=== PATIENT | female | born 1945 | race Caucasian/White ===

== ENCOUNTER 2016-10-03 06:52 | Day surgery (SDC) | payer MEDICARE, OTHER ==
[2016-09-26 13:25] LABS: HEMOGLOBIN 15.2 g/dL (12.0-16.0)
[2016-09-26 13:26] LABS: HEMATOCRIT 44.5 % (36.0-48.0)
[2016-09-26 13:27] LABS: BUN (BLOOD UREA NITROGEN) 20 MG/DL (6-23); CALCIUM, SERUM 8.9 MG/DL (8.5-10.4); CHLORIDE, SERUM 104 MMOL/L (96-112); CO2 (CARBON DIOXIDE) 30 MMOL/L (24-34); CREATININE 2.01 MG/DL (0.55-1.02); GFR AFRICAN AMERICAN 28 ML/MIN (>=60); GFR NON AFRICAN AMERICAN 25 ML/MIN (>=60); GLUCOSE, SERUM 99 MG/DL (60-99); POTASSIUM, SERUM 4.1 MMOL/L (3.5-5.3); SODIUM, SERUM 142 MMOL/L (135-148)
--- NOTE | ~2016-10-03 | OP ---
Record Of Operation [facility] [address] [place]. [address] NAME: SUNNY WILLIAMSON : 47 STATUS : [facility]#: [id number] AGE: 71 ADM/REG DATE : 10/03/16 MR#: [id number] REPORT SERV DATE: 10/03/16 DICTATED BY: TEE HAGAN DATE: 10/03/16 REPORT STATUS : Draft TRANSCRIBED BY: MODGasper DATE: 10/03/16 DATE OF PROCEDURE: 10/03/2016 PREOPERATIVE DIAGNOSIS: Renal artery stenosis secondary to atherosclerosis with difficult-to control hypertension and chronic kidney disease. POSTOPERATIVE DIAGNOSIS: Renal artery stenosis secondary to atherosclerosis with difficult- to-control hypertension and chronic kidney disease. PROCEDURES: 1. Ultrasound-guided percutaneous access, right common femoral artery. 2. Abdominal aortogram with CO2. 3. Renal arteriogram with CO2. 4. Primary stent placed in the left renal artery (6 mm x 17 mm Express stent x2). SURGEON: Tee Hagan M.D. BEAD PICKER: Patrick. ANESTHESIA: Local with MAC. ESTIMATED BLOOD LOSS: 10 mL. CONTRAST: 8 mL. IV FLUIDS: 600 mL. COMPLICATIONS: None. INDICATION: Ms Williamson is a pleasant 71-year-old female, with difficult to control hypertension and chronic kidney disease. She was found on recent ultrasound to have high- grade left renal artery stenosis. She is recommended for arteriogram with CO2 and intervention if needed. DETAILS OF PROCEDURE: After informed consent was obtained, the patient was brought to the endovascular suite and placed in supine position. After administration of IV sedation, she was prepped and draped in the usual sterile fashion. A time-out was performed. I commenced the procedure with ultrasound-guided percutaneous access of the right common femoral artery. This was done after anesthetizing the right groin with local anesthetic. A permanent image of the artery documenting patency was saved and stored in the patient's chart. An entry needle passed with a Bentson wire confirmed within the aorta under fluoroscopy. I then placed a 5-Setswana sheath. I then advanced the [place] flush catheter in the abdominal aorta. The abdominal aortogram was performed with CO2. This shows a patent nonaneurysmal infrarenal aorta. Right renal artery is visualized with no stenosis. Left renal artery is visualized. There is what appears to be a near occlusive stenosis at the origin of left renal artery. Contrast nephrogram is seen distal to the stenosis, but it is somewhat faint. Record Of Operation [facility] [id number] [place]. [address] NAME: SUNNY WILLIAMSON : 47 STATUS : [facility] PAT#: [id number] AGE: 71 ADM/REG DATE : 10/03/16 MR#: [id number] REPORT SERV DATE: 10/03/16 DICTATED BY: TEE HAGAN. DATE: 10/03/16 REPORT STATUS : Draft TRANSCRIBED BY: CARLOS DATE: 10/03/16 After that, we systemically heparinized. I replaced the Glidewire and exchanged the 5- Setswana sheath for a 6 x 45 sheath. We then used the [facility] to select the left renal artery. Selective left renal artery arteriogram was performed which confirms high-grade nearly occlusive stenosis of the left renal artery. After that, we placed a 6 mm x 17 mm Express stent in the left renal artery origin. However, due to the high-grade nature of the stenosis, it actually jumped forward to where the stenosis was not fully treated. I performed angioplasty in this area, but the result was not satisfactory. As a result, a second stent was placed overlapping the first. This was the other 6 mm x 17 mm Express stent. This was deployed in perfect position. There was no residual stenosis on repeat arteriogram. There was good flow distally into the kidney. Satisfied with that, wires and catheters were removed. ProGlide closure device was deployed in the right femoral access site without difficulty. The patient tolerated the procedure well with no complications. I was present and participated in the entire case as dictated. REBECCA/CARLOS Tee Hagan M.D. / [id number] CC: Char Long III, D.O. Nathan Chamberlain, M.D.
[~2016-10-03 06:52] MED LIST: APRES50 PO; BUSPAR15 M1 PO; CATAPRES3 TOP; COREG25 PO; COZ50 PO; L20 PO; VENTOLIN HFA INH
[2016-10-03] MEDS ORDERED: CAT2 PO (12:46)
[2016-10-03] MEDS ORDERED: PLAVIX PO (14:09)
[2016-10-03] MEDS ORDERED: LIPITOR40 PO (14:09)
== END 2016-10-03 14:42 | disposition home or self-care (01) ==
LOC: SDC 06:52 → SSU1 11:57
PROVIDERS: Surgery
DX: I70.1 Atherosclerosis of renal artery (principal); I12.9 Hypertensive chronic kidney disease with stage 1 through stage 4 chronic kidney disease, or unspecified chronic kidney disease; N18.9 Chronic kidney disease, unspecified; E11.9 Type 2 diabetes mellitus without complications; E66.01 Morbid (severe) obesity due to excess calories; Z98.51 Tubal ligation status; E04.9 Nontoxic goiter, unspecified
CPT/HCPCS: 36251; 37236; 76937; 80048; 85014; 85018; A9270-GY; C1760; C1769; C1876; C1894; J2250; J2405; J2550; J3010; P9045; Q9966